=== PATIENT | male | born 1995 ===

== ENCOUNTER → 2017-08-20 | Outpatient (CLI) | payer BC ==
--- NOTE | 2017-08-20 14:25 | DIAGNOSTIC IMAGING REPORT ---
ABDOMEN LIMITED (US) CLINICAL HISTORY: LLQ PAIN, SCROTAL PAIN COMPARISON STUDY: None. FINDINGS: Real-time sonographic imaging of the left inguinal region was performed. There is no evidence for left inguinal hernia. No masses, fluid collections, lymphadenopathy. IMPRESSION: Normal left inguinal ultrasound. Electronically signed by: Sathya Valdez M.D. 08/20/2017 2:23 PM Dictated Date/Time: 08/20/2017 2:22 PM
--- NOTE | 2017-08-20 14:27 | DIAGNOSTIC IMAGING REPORT ---
TESTICULAR ULTRASOUND HISTORY: LLQ PAIN, SCROTAL PAIN COMPARISON: None. FINDINGS: Right testis: There are no intratesticular masses. Normal color flow. No hydrocele. The epididymis is unremarkable. Left testis: There are no intratesticular masses. Normal color flow. No hydrocele. The epididymis is unremarkable. A 4 mm calcification adjacent to the left epididymis. This likely represents a small scrotal calcification. IMPRESSION: 1. Normal bilateral testes. 2. A 4 mm scrotal calcification. Electronically signed by: Sathya Valdez M.D. 08/20/2017 2:25 PM Dictated Date/Time: 08/20/2017 2:24 PM
== END ==
LOC: C.ULTR 13:10
PROVIDERS: ATTEND Family Medicine
DX: R10.32 Left lower quadrant pain (principal); N50.82 Scrotal pain